=== PATIENT | male | born 1980 | race African-American/Black ===

== ENCOUNTER 2016-10-15 22:53 | Emergency (ER) | payer SELFPAY ==
[~2016-10-15] VITALS: Ht 172.7 cm; Wt 70.8 kg
== END 2016-10-16 00:45 | disposition home or self-care (01) ==
LOC: CED 22:53
DX: L84 Corns and callosities (principal); J45.909 Unspecified asthma, uncomplicated; F17.210 Nicotine dependence, cigarettes, uncomplicated; Z23 Encounter for immunization
CPT/HCPCS: 90471; 90715; 99283